=== PATIENT | female | born 1995 | race Caucasian/White ===

== ENCOUNTER 2024-10-05 12:21 | Emergency (ER) | payer BC ==
[2024-10-05] MEDS: Ketorolac 30 MG/ML SDV IM ONE (12:49)
== END 2024-10-05 13:25 | disposition home or self-care (01) ==
LOC: DL.ED 12:21
DX: S90.32XA Contusion of left foot, initial encounter (principal); W22.09XA Striking against other stationary object, initial encounter; Y93.84 Activity, sleeping; Y92.9 Unspecified place or not applicable
CPT/HCPCS: 73630; 96372; 99283; J1885; 99282